=== PATIENT | male | born 1965 | race American Indian/Alaskan Native ===

== ENCOUNTER 2018-06-20 03:41 | Inpatient (IN) | payer OTHER ==
[2018-06-20] MEDS ORDERED: NACL 0.9% 1000 ML 1,000 ML IV ONE (03:51)
[2018-06-20 04:07] LABS: Basophils % (Auto) 0.5 % (0.0-1.8); Eosinophils % (Auto) 0.5 % (0.0-4.3); Hematocrit 28.6 % (35.5-45.6); Hemoglobin 9.6 gm/dl (11.8-15.2); Lymphocytes # (Auto) 2.3 K/mm3 (1.2-5.4); Lymphocytes % (Auto) 23.9 % (13.4-35.0); Mean Corpuscular HGB Conc 34 % (32-34); Mean Corpuscular Hemoglobin 28 pg (28-32); Mean Corpuscular Volume 85 fl (84-94); Monocytes # (Auto) 0.6 K/mm3 (0.0-0.8); Monocytes % (Auto) 6.6 % (0.0-7.3); Platelet Count 207 K/mm3 (140-440); Red Blood Count 3.37 M/mm3 (3.65-5.03); Red Cell Distribution Width 15.5 % (13.2-15.2)
[2018-06-20 04:18] LABS: INR 0.91 (0.87-1.13); Partial Thromboplastin Time 22.3 Sec. (24.2-36.6)
[2018-06-20 04:41] LABS: Alanine Aminotransferase 13 units/L (7-56); Albumin 3.3 g/dL (3.9-5); BUN/Creatinine Ratio 31; Blood Urea Nitrogen 37 mg/dL (9-20); Calcium 8.7 mg/dL (8.4-10.2); Hemolysis Index 9; Lipase 21 units/L (13-60)
[2018-06-20] MEDS ORDERED: D50W (25GM) Syringe IV ONE (04:44)
[2018-06-20] MEDS ORDERED: PROTONIX IV ONE ×2 (08:45→14:31)
[2018-06-20] MEDS ORDERED: HumuLIN R IV ONE (10:22)
--- NOTE | 2018-06-20 10:25 | Emergency Department Report ---
ED GI Bleed HPI - General Chief complaint: GI Bleed Stated complaint: WEAK VOMITING POSS BLOOD IN STOOL Time Seen by Provider: 06/20/18 07:38 Source: patient Mode of arrival: Wheelchair Limitations: No Limitations - History of Present Illness Initial comments: Patient reports dark red black stool on yesterday. Reports episodes of black stool today. Reports that he has weakness and has difficulty ambulating to the bathroom today. Reports that he normally can walk to the end of the block without difficulty. Reports hx HTN, DM, and CVA with minimal residual left sided weakness. Denies taking anticoagulants besides baby aspirin. Denies trauma. Reports colonoscopy approximately 5 years ago reported normal -: days(s) (2) Radiation: none Severity scale (0 -10): 0 Quality: painless Consistency: intermittent Improves with: none Worsens with: none Associated Symptoms: weakness. denies: abdominal pain, nausea, vomiting, epistaxis, fever/chills, headaches, loss of appetite, malaise, easy bruising, rash, other bleeding, shortness of breath, syncope - Related Data Home Medications Medication Instructions Recorded Confirmed Last Taken Allopurinol [Zyloprim] 100 mg PO QDAY 06/20/18 06/20/18 06/19/18 Aspirin [Adult Aspirin] 81 mg PO DAILY 06/20/18 06/20/18 06/19/18 AtorvaSTATin [Lipitor] 10 mg PO QHS 06/20/18 06/20/18 06/19/18 Insulin Detemir [Levemir VIAL] 16 unit SQ QHS 06/20/18 06/20/18 06/19/18 Lisinopril [Zestril TAB] 40 mg PO QDAY 06/20/18 06/20/18 06/19/18 Metoprolol Xl [Metoprolol 100 mg PO QDAY 06/20/18 06/20/18 06/19/18 SUCCINATE ER TAB] amLODIPine [Norvasc] 10 mg PO DAILY 06/20/18 06/20/18 06/19/18 cloNIDine [Catapres] 0.1 mg PO BID 06/20/18 06/20/18 06/19/18 glipiZIDE [Glipizide] 10 mg PO QHS 06/20/18 06/20/18 06/19/18 hydrALAZINE [Apresoline TAB] 100 mg PO BID 06/20/18 06/20/18 06/19/18 Allergies Allergy/AdvReac Type Severity Reaction Status Date / Time No Known Allergies Allergy Verified 06/20/18 05:33 ED Review of Systems ROS: Stated complaint: WEAK VOMITING POSS BLOOD IN STOOL Other details as noted in HPI Other: GENERAL: No weight change, fatigue, fever, chills, or night sweats SKIN: No changes in skin or hair, no itching, no rashes, no jaundice HEAD: No trauma, headache, or visual changes EYES: No blurriness, tearing, itching, acute visual loss, conjunctival discoloration, or scleral icterus EARS: No hearing loss, tinnitus, vertigo, or earache NOSE: No rhinorrhea, stuffiness, sneezing, itching, or epistaxis MOUTH: No bleeding gums, hoarseness, sore throat, or swelling CARDIAC: No new murmur, chest pain, palpitations, dyspnea on exertion, orthopnea , PND, or edema RESPIRATORY: No shortness of breath, wheeze, cough, sputum production, hemoptysis, pneumonia, asthma, bronchitis, or emphysema GI: melena. No change in appetite, nausea, vomiting, dysphagia, change in bowel frequency, diarrhea, constipation, hematemesis, or abdominal pain URINARY: No frequency, urgency, polyuria, dysuria, hematuria, or incontinence MUSCULOSKELETAL: No muscle weakness, joint stiffness, decrease in range of motion, redness, swelling NEUROLOGIC: Weakness. No loss of sensation, numbness, tingling, tremors, paralysis, seizures HEMATOLOGIC: No anemia, easy bruising, bleeding, petechiae, or purpura ENDOCRINE: No hot or cold intolerance, sweating, polyuria, polydipsia or, polyphagia no thyroid problems ED Past Medical Hx - Past Medical History Previous Medical History?: Yes Hx Hypertension: Yes Hx CVA: Yes (2008) Hx Diabetes: Yes - Surgical History Past Surgical History?: No - Social History Smoking Status: Never Smoker Substance Use Type: None - Medications Home Medications: Home Medications Medication Instructions Recorded Confirmed Last Taken Type Allopurinol [Zyloprim] 100 mg PO QDAY 06/20/18 06/20/18 06/19/18 History Aspirin [Adult Aspirin] 81 mg PO DAILY 06/20/18 06/20/18 06/19/18 History AtorvaSTATin [Lipitor] 10 mg PO QHS 06/20/18 06/20/18 06/19/18 History Insulin Detemir [Levemir VIAL] 16 unit SQ QHS 06/20/18 06/20/18 06/19/18 History Lisinopril [Zestril TAB] 40 mg PO QDAY 06/20/18 06/20/18 06/19/18 History Metoprolol Xl [Metoprolol 100 mg PO QDAY 06/20/18 06/20/18 06/19/18 History SUCCINATE ER TAB] amLODIPine [Norvasc] 10 mg PO DAILY 06/20/18 06/20/18 06/19/18 History cloNIDine [Catapres] 0.1 mg PO BID 06/20/18 06/20/18 06/19/18 History glipiZIDE [Glipizide] 10 mg PO QHS 06/20/18 06/20/18 06/19/18 History hydrALAZINE [Apresoline TAB] 100 mg PO BID 06/20/18 06/20/18 06/19/18 History ED Physical Exam - General Limitations: No Limitations - Other Other exam information: GENERAL: Patient in no acute distress HEAD: Normocephalic, atraumatic EYES: PERRLA, EOM intact, no scleral icterus, visual cedillo and acuity wnl NOSE: No tenderness, discharge, sinus tenderness MOUTH: No erythema, bleeding, exudate HEART: Regular rate and rhythm, no murmur, S1-S2 are auscultated, pulses are symmetric LUNGS: bilateral breath sounds. No wheezing, rales, rhonchi ABDOMEN: Normal bowel sounds, no tenderness, no rebound, no guarding, no masses , no CVA tenderness MUSCULOSKELETAL: Normal joint range of motion, no redness, no swelling, no tenderness NEUROLOGIC: GCS 15, Alert and Oriented x3, Cranial nerves intact, normal sensation, normal strength, normal gait, no cerebellar deficit SKIN: Skin is warm and dry, no wounds, no rashes ED Course Vital Signs 06/20/18 06/20/18 03:48 06:48 Temperature 98.6 F 98.5 F Pulse Rate 107 H 80 Respiratory 18 18 Rate Blood Pressure 169/84 Blood Pressure 146/80 [Left] O2 Sat by Pulse 100 100 Oximetry ED Medical Decision Making - Lab Data Result diagrams: 06/20/18 10:30 06/20/18 03:53 Laboratory Results - last 24 hr 06/20/18 06/20/18 06/20/18 03:48 03:53 03:53 WBC 9.8 RBC 3.37 L Hgb 9.6 L Hct 28.6 L MCV 85 MCH 28 MCHC 34 RDW 15.5 H Plt Count 207 Lymph % (Auto) 23.9 [place] % (Auto) 6.6 Eos % (Auto) 0.5 Baso % (Auto) 0.5 Lymph # 2.3 [place] # 0.6 Eos # 0.0 Baso # 0.0 Seg Neutrophils % 68.5 Seg Neutrophils # 6.7 PT 12.7 INR 0.91 APTT 22.3 L Sodium Potassium Chloride Carbon Dioxide Anion Gap BUN Creatinine Estimated GFR BUN/Creatinine Ratio Glucose POC Glucose 341 H Lactic Acid Calcium Total Bilirubin AST ALT Alkaline Phosphatase Troponin T Total Protein Albumin Albumin/Globulin Ratio Lipase Blood Type Antibody Screen 06/20/18 06/20/18 06/20/18 03:53 03:56 07:51 WBC RBC Hgb Hct MCV MCH MCHC RDW Plt Count Lymph % (Auto) [place] % (Auto) Eos % (Auto) Baso % (Auto) Lymph # [place] # Eos # Baso # Seg Neutrophils % Seg Neutrophils # PT INR APTT Sodium 138 Potassium 3.6 Chloride 101.9 Carbon Dioxide 20 L Anion Gap 20 BUN 37 H Creatinine 1.2 Estimated GFR > 60 BUN/Creatinine Ratio 31 Glucose 344 H POC Glucose Lactic Acid 1.30 Calcium 8.7 Total Bilirubin 0.40 AST 10 ALT 13 Alkaline Phosphatase 60 Troponin T Total Protein 5.4 L Albumin 3.3 L Albumin/Globulin Ratio 1.6 Lipase 21 Blood Type B POSITIVE Antibody Screen Negative 06/20/18 06/20/18 06/20/18 07:51 09:41 10:30 WBC RBC Hgb 8.7 L Hct 26.1 L MCV MCH MCHC RDW Plt Count Lymph % (Auto) [place] % (Auto) Eos % (Auto) Baso % (Auto) Lymph # [place] # Eos # Baso # Seg Neutrophils % Seg Neutrophils # PT INR APTT Sodium Potassium Chloride Carbon Dioxide Anion Gap BUN Creatinine Estimated GFR BUN/Creatinine Ratio Glucose POC Glucose 324 H Lactic Acid Calcium Total Bilirubin AST ALT Alkaline Phosphatase Troponin T < 0.010 Total Protein Albumin Albumin/Globulin Ratio Lipase Blood Type Antibody Screen - Medical Decision Making At [facility] Luh with GI updated. Reports she will come evaluate the patient in the ER At 1142 Luh GI in the ER. Reports GI plans endoscopy today. Updated decreased Hgb. At 1146 Dr. Farmer hospitalist updated. Accepts admission. Request bridge orders. Critical care attestation.: If time is entered above; I have spent that time in minutes in the direct care of this critically ill patient, excluding procedure time. ED Disposition Clinical Impression: Weakness GI bleed Qualifiers: GI bleed type/associated pathology: unspecified gastrointestinal hemorrhage type Qualified Code(s): K92.2 - Gastrointestinal hemorrhage, unspecified Disposition: [id number] OP ADMIT IP TO THIS HOSP Is pt being admited?: Yes Condition: Stable Time of Disposition: 11:46
[2018-06-20 10:44] LABS: Hematocrit 26.1 % (35.5-45.6); Hemoglobin 8.7 gm/dl (11.8-15.2)
--- NOTE | 2018-06-20 11:42 | Gastroenterology Consultation ---
History of Present Illness - Reason for Consult Consult date: 06/20/18 GI bleed Requesting physician: AYALA BISHOP - History of Present Illness Patient is a 53 y/o male with PMH HTN, DM, and CVA with minimal left sided residual who presented to ED with c/o GI bleed to which GI has been consulted. This morning patient was resting on stretcher in ED w/o acute distress and at bedside. He reports dark black stool since yesterday and 1 episode of vomiting up dark/black emesis this am. No hematemesis or hematochezia. Denies fever, CP, SOB, wt loss, abd pain, dysphagia, diarrhea or constipation. Takes daily ASA at home. No prior hx of GI bleeding. No hx of liver disease. No previous EGD. Had a colonoscopy [address] Lee that revealed polyps and is currently due for repeat colonoscopy. No Fhx of GI cancers. Past History Past Medical History: diabetes, hypertension, stroke Past Surgical History: No surgical history Social history: denies: smoking, alcohol abuse Medications and Allergies Allergies Allergy/AdvReac Type Severity Reaction Status Date / Time No Known Allergies Allergy Verified 06/20/18 05:33 Review of Systems - Review of Systems All systems: negative Gastrointestinal: coffee ground emesis, melena Exam - Constitutional Vital Signs: Temp Pulse Resp BP Pulse Ox 98.5 F 80 18 146/80 100 06/20/18 06:48 06/20/18 06:48 06/20/18 06:48 06/20/18 06:48 06/20/18 06:48 General appearance: no acute distress - EENT Eyes: PERRL, EOM intact ENT: hearing intact - Respiratory Respiratory: bilateral: CTA - Cardiovascular Rhythm: regular Heart Sounds: Present: S1 & S2 - Gastrointestinal General gastrointestinal: Present: soft, non-tender, non-distended, normal bowel sounds Rectal Exam: other (black/maroon stool) - Integumentary Integumentary: Present: warm, dry - Neurologic Neurological: alert and oriented x3 - Labs CBC & Chem 7: 06/20/18 10:30 06/20/18 03:53 Lab Results: Laboratory Results - last 24 hr 06/20/18 06/20/18 06/20/18 03:48 03:53 03:53 WBC 9.8 RBC 3.37 L Hgb 9.6 L Hct 28.6 L MCV 85 MCH 28 MCHC 34 RDW 15.5 H Plt Count 207 Lymph % (Auto) 23.9 [place] % (Auto) 6.6 Eos % (Auto) 0.5 Baso % (Auto) 0.5 Lymph # 2.3 [place] # 0.6 Eos # 0.0 Baso # 0.0 Seg Neutrophils % 68.5 Seg Neutrophils # 6.7 PT 12.7 INR 0.91 APTT 22.3 L Sodium Potassium Chloride Carbon Dioxide Anion Gap BUN Creatinine Estimated GFR BUN/Creatinine Ratio Glucose POC Glucose 341 H Lactic Acid Calcium Total Bilirubin AST ALT Alkaline Phosphatase Troponin T Total Protein Albumin Albumin/Globulin Ratio Lipase Blood Type Antibody Screen 06/20/18 06/20/18 06/20/18 03:53 03:56 07:51 WBC RBC Hgb Hct MCV MCH MCHC RDW Plt Count Lymph % (Auto) [place] % (Auto) Eos % (Auto) Baso % (Auto) Lymph # [place] # Eos # Baso # Seg Neutrophils % Seg Neutrophils # PT INR APTT Sodium 138 Potassium 3.6 Chloride 101.9 Carbon Dioxide 20 L Anion Gap 20 BUN 37 H Creatinine 1.2 Estimated GFR > 60 BUN/Creatinine Ratio 31 Glucose 344 H POC Glucose Lactic Acid 1.30 Calcium 8.7 Total Bilirubin 0.40 AST 10 ALT 13 Alkaline Phosphatase 60 Troponin T Total Protein 5.4 L Albumin 3.3 L Albumin/Globulin Ratio 1.6 Lipase 21 Blood Type B POSITIVE Antibody Screen Negative 06/20/18 06/20/18 06/20/18 07:51 09:41 10:30 WBC RBC Hgb 8.7 L Hct 26.1 L MCV MCH MCHC RDW Plt Count Lymph % (Auto) [place] % (Auto) Eos % (Auto) Baso % (Auto) Lymph # [place] # Eos # Baso # Seg Neutrophils % Seg Neutrophils # PT INR APTT Sodium Potassium Chloride Carbon Dioxide Anion Gap BUN Creatinine Estimated GFR BUN/Creatinine Ratio Glucose POC Glucose 324 H Lactic Acid Calcium Total Bilirubin AST ALT Alkaline Phosphatase Troponin T < 0.010 Total Protein Albumin Albumin/Globulin Ratio Lipase Blood Type Antibody Screen Assessment and Plan 1.GI bleed 2.melena 3.coffee-ground emesis -INR 0.91 -HGB 8.7- trending down -continue to monitor H/H and transfuse as needed -hold blood thinning medications -currently HD stable -BM x 2 with black stool yesterday and 1 episode of vomiting dark black emesis this am (rectal with black/maroon stool) -etiology unclear- possible ulcer vs other -will schedule for EGD today -Keep NPO -start on PPI -continue supportive care -will follow
[2018-06-20] MEDS ORDERED: SODIUM CHLORIDE FLUSH SYRINGE 10 ML IV PRN ×2 (11:47→22:44)
[2018-06-20] MEDS ORDERED: TYLENOL PO PRN ×2 (11:47→22:44)
[2018-06-20] MEDS ORDERED: ZOFRAN IV PRN ×2 (11:47→22:44)
[2018-06-20] MEDS: PROTONIX IV SCH ×2 (15:32→21:48)
[2018-06-20] MEDS: NACL 0.9% 1000 ML 1,000 ML IV SCH ×2 (15:47→19:17)
[2018-06-20] MEDS ORDERED: WATER FOR IRRIG STERILE IR ONE (16:19)
[2018-06-20] MEDS ORDERED: VERSED ONE (16:23)
[2018-06-20] MEDS ORDERED: DIPRIVAN 10 MG/ML IV ONE (16:23)
--- NOTE | 2018-06-20 16:41 | Post Operative Note ---
Pre-op diagnosis: gi bleed Post-op diagnosis: same Findings: EGD: hiatal hernia - 3 5-8 mm white based ulcer antrum - 10 mm ulcer bulb with central pigmented spot (probable source bleeding) - negative other Procedure: EGD Anesthesia: MAC Surgeon: ELSA SHORT Estimated blood loss: none Pathology: list Specimen disposition: to lab Condition: stable Disposition: floor
[2018-06-20] MEDS ORDERED: SODIUM CHLORIDE FLUSH SYRINGE 10 ML IV SCH (22:00)
[2018-06-20] MEDS ORDERED: HumaLOG SUB-Q SCH (22:34)
[2018-06-20] MEDS ORDERED: MORPHINE IV PRN (22:44)
--- NOTE | 2018-06-20 22:44 | Event Note ---
Date: 06/20/18 See dictated history and physical on the reports Upper GI bleed Patient had EGD IV Protonix for now
[2018-06-20 23:39] LABS: Hematocrit 20.6 % (35.5-45.6); Hemoglobin 6.9 gm/dl (11.8-15.2)
[2018-06-21] MEDS: HumaLOG SUB-Q SCH ×4 (00:15→18:39)
[2018-06-21 04:45] LABS: Alanine Aminotransferase 10 units/L (7-56); Albumin 2.8 g/dL (3.9-5); BUN/Creatinine Ratio 22; Blood Urea Nitrogen 29 mg/dL (9-20); Calcium 7.9 mg/dL (8.4-10.2); Hemolysis Index 9
[2018-06-21 06:35] LABS: Hematocrit 20.5 % (35.5-45.6); Hemoglobin 6.8 gm/dl (11.8-15.2)
--- NOTE | 2018-06-21 08:30 | Anesthesia Day of Surgery ---
Anesthesia Day of Surgery - Day of Surgery Patient Examined: Yes Patient H&P Reviewed: Yes Patient is NPO: Yes Beta Blockers: No Cardiac Clearance: No Pulmonary Clearance: No
--- NOTE | 2018-06-21 08:32 | Anesthesia Consultation ---
Anesthesia Consult and Med Hx - Airway Anesthetic Teeth Evaluation: Good ROM Head & Neck: Adequate Mental/Hyoid Distance: Adequate Mallampati Class: Class III Intubation Access Assessment: Probably Good - Pulmonary Exam CTA: Yes - Cardiac Exam Cardiac Exam: No Murmur - Pre-Operative Health Status ASA Pre-Surgery Classification: ASA3 Proposed Anesthetic Plan: MAC - Pulmonary Hx Smoking: No Hx Asthma: No Hx Respiratory Symptoms: No COPD: No Hx Pneumonia: No - Cardiovascular System Hx Hypertension: Yes Hx Coronary Artery Disease: No Hx Heart Attack/AMI: No Hx Angina: No Hx Percutaneous Transluminal Coronary Angioplasty (PTCA): No Hx Cardia Arrhythmia: No Hx Pacemaker: No Hx Internal Defibrillator: No Hx Valvular Heart Disease: No Hx Heart Murmur: No Hx Peripheral Vascular Disease: No - Central Nervous System Hx Neuromuscular Disorder: No Hx Seizures: No CVA: Yes Hx Back Pain: No Hx Psychiatric Problems: No - Gastrointestinal Hx Ulcer: No Hx Gastroesophageal Reflux Disease: No - Endocrine Hx Renal Disease: No Hx End Stage Renal Disease: No Hx Cirrhosis: No Hx Liver Disease: No Hx Insulin Dependent Diabetes: Yes Hx Non-Insulin Dependent Diabetes: No Hx Thyroid Disease: No Hx Hypothyroidism: No Hx Hyperthyroidism: No - Hematic Hx Anemia: No Hx Sickle Cell Disease: No - Other Systems Hx Alcohol Use: No Hx Substance Use: No Hx Cancer: No Hx Obesity: Yes
--- NOTE | 2018-06-21 09:46 | History and Physical Report ---
CHIEF COMPLAINT: Dark stools since yesterday. HISTORY OF PRESENT ILLNESS: A 53-year-old male with history of hypertension, diabetes, cerebrovascular accident with left-sided residual hemiparesis, comes in for one episode of dark stools since yesterday and one episode of vomiting blood this morning. No chest pain, no palpitations. Had a colonoscopy 5 years ago, which revealed polyps. Currently due for repeat colonoscopy. PAST MEDICAL HISTORY: Significant for diabetes, hypertension, and CVA. PAST SURGICAL HISTORY: None. SOCIAL HISTORY: Does not smoke. No alcohol. FAMILY HISTORY: Hypertension. REVIEW OF SYSTEMS: Significant for coffee-ground emesis and melenic stools. Otherwise, the review of systems negative. Feels a bit weak. Fourteen-point review of systems done. PHYSICAL EXAMINATION: GENERAL: Middle-aged male, cooperative during examination. VITAL SIGNS: Blood pressure was 175/90, not orthostatic. Temperature 98.7, pulse 87, respirations 20. HEENT: Unremarkable. No pale mucous membranes. NECK: Supple, no lymphadenopathy, no thyromegaly. LUNGS: Clear to auscultation and percussion. Good air entry. CARDIOVASCULAR SYSTEM: S1, S2 heard. No gallop, no murmur, no rub. Apical impulse in left fifth intercostal space in midclavicular line. ABDOMEN: Soft and benign. Slight epigastric tenderness present. Hernial offices are normal. EXTREMITIES: Good pedal pulses. No pedal edema. CENTRAL NERVOUS SYSTEM: Alert and oriented x 4, nonfocal exam. SKIN: Normal. LABORATORY DATA: Significant for hemoglobin of 9.6, which is down to 8.7 in the ER. Hematocrit was 28.6, which has dropped to 26.1. Electrolytes are normal. BUN and creatinine 37 and 1.2. Glucose is 344. Total protein is 5.4. Albumin is 3.3. The patient was taken to the emergent upper endoscopy. Showed 3.5-8 mm of white ulcer in the antrum. Also, a 10 mm ulcer in the bulb. Central pigmented spot, probable source of bleeding. No active bleeding. ASSESSMENT AND PLAN: 1. Upper gastrointestinal bleed. The patient already had endoscopy. We will monitor for loss of blood and transfuse as necessary. IV Protonix initiated. GI consult already done. 2. Insulin-dependent diabetes. We will cover for now. 3. Hypertension. The patient initiated on Catapres patch as the patient is still n.p.o. The patient may be started on clear liquids and diet tomorrow. Will defer to hospitalist team and GI team. 4. Gout. Allopurinol on hold. 5. Hyperlipidemia. Atorvastatin on hold. 6. Deep venous thrombosis prophylaxis, only sequential compression devices. JOB# [id number] VSM/NTS
--- NOTE | 2018-06-21 09:48 | Progress Note ---
Assessment and Plan Assessment and plan: --Upper GI bleeding; s/p EGD; 3.5-8 mm wide-based ulcer antrum 10 mm ulcer bulb with central pigmented spot probably the source of bleeding, IV Protonix, GI recommended soft diet, supportive care --Acute blood loss anemia; hemoglobin 6.8 -7.0 Type and cross and transfuse 1 unit of PRBC, if hemoglobin is less than 7, Closely monitor H&H, transfuse additional PRBC as needed --2 diabetes mellitus; uncontrolled, patient was NPO and missed diabetic medications, continue Accu-Chek sliding scale coverage and ADA diet insulin as needed, hemoglobin A1c --Hypertension; moderate control; continue current antihypertensives and when necessary medications --Severe malnutrition/hypoalbuminemia; nutritional supplements and supportive Nutrition consult as needed --Dyslipidemia; stable on statin --History of gout; continue allopurinol --DVT prophylaxis; SCDs, no pharmacologic anticoagulation due to severe GI bleeding Closely monitor the patient and adjust management as needed Consults and recommendations noted and appreciated Plan of care reviewed with the patient and his nurse History Interval history: Patient was admitted with upper GI bleeding Underwent EGD, continues to have melena Hemoglobin between 6.8, and 7 Patient complaints of generalized weakness Alert awake oriented, vital signs reviewed Hospitalist Physical - Constitutional Vitals: Temp Pulse Resp BP Pulse Ox 98.5 F 92 H 20 165/75 100 06/21/18 05:37 06/21/18 05:37 06/21/18 05:37 06/21/18 05:37 06/21/18 05:37 General appearance: Present: no acute distress, well-nourished, obese - EENT Eyes: Present: PERRL, EOM intact - Neck Neck: Present: supple, normal ROM - Respiratory Respiratory effort: normal Respiratory: negative: rales, rhonchi, wheezing - Cardiovascular Rhythm: regular Heart Sounds: Present: S1 & S2 - Extremities Extremities: no ischemia, No edema - Abdominal General gastrointestinal: soft, non-tender, non-distended, normal bowel sounds - Integumentary Integumentary: Present: clear, warm - Psychiatric Psychiatric: appropriate mood/affect, cooperative - Neurologic Neurologic: CNII-XII intact, moves all extremities Results - Labs CBC & Chem 7: 06/21/18 14:51 06/21/18 03:25 Labs: Laboratory Last Values WBC 9.8 K/mm3 (4.5-11.0) 06/20/18 03:53 RBC 3.37 M/mm3 (3.65-5.03) L 06/20/18 03:53 Hgb 6.8 gm/dl (11.8-15.2) L 06/21/18 06:11 Hct 20.5 % (35.5-45.6) L 06/21/18 06:11 MCV 85 fl (84-94) 06/20/18 03:53 MCH 28 pg (28-32) 06/20/18 03:53 MCHC 34 % (32-34) 06/20/18 03:53 RDW 15.5 % (13.2-15.2) H 06/20/18 03:53 Plt Count 207 K/mm3 (140-440) 06/20/18 03:53 Lymph % (Auto) 23.9 % (13.4-35.0) 06/20/18 03:53 [place] % (Auto) 6.6 % (0.0-7.3) 06/20/18 03:53 Eos % (Auto) 0.5 % (0.0-4.3) 06/20/18 03:53 Baso % (Auto) 0.5 % (0.0-1.8) 06/20/18 03:53 Lymph # 2.3 K/mm3 (1.2-5.4) 06/20/18 03:53 [place] # 0.6 K/mm3 (0.0-0.8) 06/20/18 03:53 Eos # 0.0 K/mm3 (0.0-0.4) 06/20/18 03:53 Baso # 0.0 K/mm3 (0.0-0.1) 06/20/18 03:53 Seg Neutrophils % 68.5 % (40.0-70.0) 06/20/18 03:53 Seg Neutrophils # 6.7 K/mm3 (1.8-7.7) 06/20/18 03:53 PT 12.7 Sec. (12.2-14.9) 06/20/18 03:53 INR 0.91 (0.87-1.13) 06/20/18 03:53 APTT 22.3 Sec. (24.2-36.6) L 06/20/18 03:53 Sodium 137 mmol/L (137-145) 06/21/18 03:25 Potassium 4.1 mmol/L (3.6-5.0) 06/21/18 03:25 Chloride 103.5 mmol/L (98-107) 06/21/18 03:25 Carbon Dioxide 19 mmol/L (22-30) L 06/21/18 03:25 Anion Gap 19 mmol/L 06/21/18 03:25 BUN 29 mg/dL (9-20) H 06/21/18 03:25 Creatinine 1.3 mg/dL (0.8-1.5) 06/21/18 03:25 Estimated GFR > 60 ml/min 06/21/18 03:25 BUN/Creatinine Ratio 22 % 06/21/18 03:25 Glucose 372 mg/dL (75-100) H 06/21/18 03:25 POC Glucose 305 (70-105) H 06/21/18 07:17 Lactic Acid 1.30 mmol/L (0.7-2.0) 06/20/18 07:51 Calcium 7.9 mg/dL (8.4-10.2) L 06/21/18 03:25 Total Bilirubin 0.30 mg/dL (0.1-1.2) 06/21/18 03:25 AST 10 units/L (5-40) 06/21/18 03:25 ALT 10 units/L (7-56) 06/21/18 03:25 Alkaline Phosphatase 50 units/L (35-129) 06/21/18 03:25 Troponin T < 0.010 ng/mL (0.00-0.029) 06/20/18 07:51 Total Protein 5.0 g/dL (6.3-8.2) L 06/21/18 03:25 Albumin 2.8 g/dL (3.9-5) L 06/21/18 03:25 Albumin/Globulin Ratio 1.3 % 06/21/18 03:25 Lipase 21 units/L (13-60) 06/20/18 03:53 Blood Type B POSITIVE 06/20/18 03:56 Antibody Screen Negative 06/20/18 03:56
[2018-06-21] MEDS ORDERED: CATAPRES PO SCH (10:00)
[2018-06-21] MEDS ORDERED: CATAPRES-TTS PATCH TD SCH (10:00)
[2018-06-21] MEDS: PROTONIX IV SCH (10:05)
--- NOTE | 2018-06-21 10:05 | Gastroenterology Progress Note ---
Assessment and Plan 1.GI bleed 2.melena 3.coffee-ground emesis -HGB 6.8-stable from PM labs -continue to monitor H/H and transfuse as needed -hold blood thinning medications -HD stable -BM x 1 this am with black stool mixed with small amount of dark red blood -s/p EGD yesterday that revealed 3 5-8 mm white based ulcer antrum, 10mm ulcer bulb with central pigmented spot (probable source of bleeding) -will order repeat H/H at noon if trended down- recommend transfusion and keep NPO for possible repeat EGD, if stable okay to advance to GI soft diet -okay for clear liquids this am -avoid NSAIDs -continue PPI and sucpportive care -will follow Subjective Date of service: 06/21/18 Principal diagnosis: GI bleed Interval history: Patient sitting on the side of the bed this am w/o acute distress and at bedside. Reports BM x 1 this am with black stool mixed with small amount of dark red blood. Denies abd pain or N/V. Objective - Constitutional Vitals: Temp Pulse Resp BP Pulse Ox 98.5 F 92 H 20 165/75 100 06/21/18 05:37 06/21/18 05:37 06/21/18 05:37 06/21/18 05:37 06/21/18 05:37 General appearance: no acute distress - Respiratory Respiratory: bilateral: CTA - Cardiovascular Rhythm: regular Heart Sounds: Present: S1 & S2 - Gastrointestinal General gastrointestinal: Present: soft, non-tender, non-distended, normal bowel sounds - Neurologic Neurological: alert and oriented x3 - Labs CBC & Chem 7: 06/21/18 06:11 06/21/18 03:25 Labs: Laboratory Results - last 24 hr 06/20/18 06/20/18 06/20/18 10:30 15:16 21:17 Hgb 8.7 L Hct 26.1 L Sodium Potassium Chloride Carbon Dioxide Anion Gap BUN Creatinine Estimated GFR BUN/Creatinine Ratio Glucose POC Glucose 263 H 356 H Calcium Total Bilirubin AST ALT Alkaline Phosphatase Total Protein Albumin Albumin/Globulin Ratio 06/20/18 06/21/18 06/21/18 23:28 03:25 05:45 Hgb 6.9 L Hct 20.6 L Sodium 137 Potassium 4.1 Chloride 103.5 Carbon Dioxide 19 L Anion Gap 19 BUN 29 H Creatinine 1.3 Estimated GFR > 60 BUN/Creatinine Ratio 22 Glucose 372 H POC Glucose 309 H Calcium 7.9 L Total Bilirubin 0.30 AST 10 ALT 10 Alkaline Phosphatase 50 Total Protein 5.0 L Albumin 2.8 L Albumin/Globulin Ratio 1.3 06/21/18 06/21/18 06:11 07:17 Hgb 6.8 L Hct 20.5 L Sodium Potassium Chloride Carbon Dioxide Anion Gap BUN Creatinine Estimated GFR BUN/Creatinine Ratio Glucose POC Glucose 305 H Calcium Total Bilirubin AST ALT Alkaline Phosphatase Total Protein Albumin Albumin/Globulin Ratio
[2018-06-21] MEDS: TOPROL XL PO SCH (10:10)
[2018-06-21] MEDS: ZESTRIL PO SCH (10:11)
[2018-06-21] MEDS: ZYLOPRIM PO SCH (10:11)
[2018-06-21] MEDS: NORVASC PO SCH (10:12)
[2018-06-21] MEDS: APRESOLINE PO SCH (10:12)
[2018-06-21] MEDS: SODIUM CHLORIDE FLUSH SYRINGE 10 ML IV SCH (10:13)
[2018-06-21 12:54] LABS: Hematocrit 21.2 % (35.5-45.6)
[2018-06-21] MEDS: NACL 0.9% 1000 ML 1,000 ML IV SCH (14:47)
[2018-06-21 15:19] LABS: Hematocrit 20.3 % (35.5-45.6); Hemoglobin 6.6 gm/dl (11.8-15.2)
[2018-06-21] MEDS ORDERED: NACL 0.9% 500 ML 500 ML IV ONE (17:13)
--- NOTE | 2018-06-21 17:30 | Event Note ---
Date: 06/21/18 Patient's repeat hemoglobin is 6.6, and type and cross Transfuse 1 unit of PRBC, closely monitor H&H, additional PRBC transfusion if needed Possible discharge home tomorrow if stable
[2018-06-21] MEDS ORDERED: INSULIN DETEMIR 16 UNIT SQ SCH (22:00)
[2018-06-21] MEDS ORDERED: GLUCOTROL PO SCH (22:00)
[2018-06-21] MEDS ORDERED: LANTUS SUB-Q SCH (22:00)
[2018-06-21] MEDS ORDERED: NACL 0.9% 500 ML 500 ML ONE (23:23)
[2018-06-22] MEDS: APRESOLINE PO SCH ×2 (00:17→09:14)
[2018-06-22] MEDS: SODIUM CHLORIDE FLUSH SYRINGE 10 ML IV SCH ×2 (00:20→09:14)
[2018-06-22] MEDS: PROTONIX IV SCH ×2 (00:43→09:12)
[2018-06-22] MEDS: HumaLOG SUB-Q SCH ×3 (00:44→11:48)
[2018-06-22 05:48] LABS: Basophils % (Auto) 0.4 % (0.0-1.8); Eosinophils # (Auto) 0.1 K/mm3 (0.0-0.4); Hemoglobin 7.4 gm/dl (11.8-15.2); Lymphocytes # (Auto) 2.4 K/mm3 (1.2-5.4); Lymphocytes % (Auto) 26.7 % (13.4-35.0); Mean Corpuscular HGB Conc 33 % (32-34); Mean Corpuscular Hemoglobin 28 pg (28-32); Mean Corpuscular Volume 85 fl (84-94); Monocytes # (Auto) 0.7 K/mm3 (0.0-0.8); Monocytes % (Auto) 7.9 % (0.0-7.3); Platelet Count 170 K/mm3 (140-440); Red Blood Count 2.59 M/mm3 (3.65-5.03); Red Cell Distribution Width 16.2 % (13.2-15.2)
[2018-06-22 07:43] LABS: BUN/Creatinine Ratio 12; Blood Urea Nitrogen 14 mg/dL (9-20); Calcium 8.3 mg/dL (8.4-10.2); Hemolysis Index 99
[2018-06-22] MEDS: NORVASC PO SCH (09:13)
[2018-06-22] MEDS: ZESTRIL PO SCH (09:13)
[2018-06-22] MEDS: ZYLOPRIM PO SCH (09:13)
[2018-06-22] MEDS: TOPROL XL PO SCH (09:14)
[2018-06-22 12:36] VITALS: BP 132/80
--- NOTE | 2018-06-22 13:04 | Discharge Summary ---
Providers - Providers Date of Admission: 06/20/18 11:47 Date of discharge: 06/22/18 Attending physician: THOMAS MEHTA 06/20/18 11:40 Consult to Physician [CONS] Stat Comment: Consulting Provider: CESAR SANTO Physician Instructions: Reason For Exam: GI Bleed 06/20/18 22:44 Consult to Physician [CONS] Routine Comment: Consulting Provider: ELSA SHORT Physician Instructions: Reason For Exam: GI bleed Primary care physician: PRIMARY OPERATOR Hospitalization Condition: Stable Hospital course: --Upper GI bleeding; s/p EGD; 3.5-8 mm wide-based ulcer antrum 10 mm ulcer bulb with central pigmented spot probably the source of bleeding, IV Protonix, GI recommended soft diet, supportive care --Acute blood loss anemia; hemoglobin 6.8 -7.0 Type and cross and transfuse 1 unit of PRBC, if hemoglobin is less than 7, Closely monitor H&H, transfuse additional PRBC as needed --2 diabetes mellitus; uncontrolled, patient was NPO and missed diabetic medications, continue Accu-Chek sliding scale coverage and ADA diet insulin as needed, hemoglobin A1c --Hypertension; moderate control; continue current antihypertensives and when necessary medications --Severe malnutrition/hypoalbuminemia; nutritional supplements and supportive Nutrition consult as needed --Dyslipidemia; stable on statin --History of gout; continue allopurinol --DVT prophylaxis; SCDs, no pharmacologic anticoagulation due to severe GI bleeding Disposition: TO HOME OR SELFCARE Time spent for discharge: 32 min Core Measure Documentation - Palliative Care Palliative Care/ Comfort Measures: Not Applicable - Core Measures Any of the following diagnoses?: none Exam - Constitutional Vitals: Temp Pulse Resp BP Pulse Ox 98.3 F 79 18 132/80 99 06/22/18 11:41 06/22/18 11:41 06/22/18 11:41 06/22/18 11:41 06/22/18 11:41 General appearance: Present: no acute distress, well-nourished - EENT Eyes: Present: PERRL, EOM intact - Neck Neck: Present: supple, normal ROM - Respiratory Respiratory effort: normal Respiratory: negative: rales, rhonchi, wheezing - Cardiovascular Rhythm: regular Heart Sounds: Present: S1 & S2 - Extremities Extremities: no ischemia, No edema - Abdominal General gastrointestinal: Present: soft, non-tender, non-distended, normal bowel sounds - Integumentary Integumentary: Present: clear, warm - Musculoskeletal Musculoskeletal: strength equal bilaterally - Psychiatric Psychiatric: appropriate mood/affect, cooperative - Neurologic Neurologic: CNII-XII intact, moves all extremities Plan Activity: no restrictions Diet: diabetic, other (soft diet, advance as tolerated) Additional Instructions: If you notice any new episodes of bleeding, contact M.D or go to emergency room. Hold aspirin view off GI bleeding, resume if okay with PMD/GI Follow up with: PRIMARY CARE, [Primary Care Provider] - 3-5 Days ELSA SHORT MD [Staff Physician] - 7 Days Forms: Accompanied Note Prescriptions: Ferrous Sulfate [Feosol 325 MG tab] 325 mg PO BID #60 tablet Pantoprazole [Protonix TAB] 40 mg PO BID #30 tablet
[2018-06-22] MEDS ORDERED: LANTUS SUB-Q SCH (22:00)
[2018-06-22] MEDS ORDERED: PROTONIX PO SCH (22:00)
== END 2018-06-22 15:00 | disposition home or self-care (01) | DRG 377 ==
LOC: ED 03:41 → 4A 11:47 → 3A 15:51
PROVIDERS: ADMIT Internal Medicine; ATTEND Internal Medicine
PROC: 0DJ08ZZ Inspection of Upper Intestinal Tract, Via Natural or Artificial Opening Endoscopic (ICD-10-PCS; principal; 2018-06-20)
PROC: 30233N1 Transfusion of Nonautologous Red Blood Cells into Peripheral Vein, Percutaneous Approach (ICD-10-PCS; 2018-06-21)
DX: K25.4 Chronic or unspecified gastric ulcer with hemorrhage (principal); E43 Unspecified severe protein-calorie malnutrition; D62 Acute posthemorrhagic anemia; E78.5 Hyperlipidemia, unspecified; M10.9 Gout, unspecified; E11.9 Type 2 diabetes mellitus without complications; Z79.4 Long term (current) use of insulin; I69.354 Hemiplegia and hemiparesis following cerebral infarction affecting left non-dominant side; Z82.49 Family history of ischemic heart disease and other diseases of the circulatory system; Z68.33 Body mass index [BMI] 33.0-33.9, adult
CPT/HCPCS: 36415; 80048; 80053; 82140; 82962; 83690; 84484; 85014; 85018; 85025; 85610; 85730; 86850; 86900; 86901; 86920; 93005; 93010; 96361; 96374; 96375; A9270-GY; C9113; J1815; J2250; J2704; J7030; J7040; P9016